=== PATIENT | male | born 1945 | race Caucasian/White ===

== ENCOUNTER → 2024-09-26 | Outpatient (CLI) | payer MEDICARE, OTHER ==
--- NOTE | 2024-09-26 10:55 | MR ---
EXAMINATION TYPE: MR lumbar spine wo con DATE OF EXAM: 09/26/2024 9:00 AM COMPARISON: Plain film. CLINICAL INDICATION: Male, 78 years old with history of M47.26 M47.816 M54.40; PHH, Chronic lower aleida k pain, RLE radiculopathy. TECHNIQUE: Multi planar, multi sequence imaging was performed utilizing: T1-weighted, T2-weighted, a nd turbo inversion recovery imaging of the lumbar spine. IV Contrast: mL (None, if empty) FINDINGS: Alignment: The lumbar vertebral bodies have preserved heights with grade 1 anterolisthesis of L4 on L 5. Cord: The conus medullaris and the distal spinal cord appear unremarkable with regards to their signa l intensity and morphology. Bones/Discs: Moderate degeneration changes throughout the spine with osteophyte formation and facet j oint arthropathy. Multilevel disc desiccation is present. No abnormal inversion recovery signal to dennison ggest bony edema. T12-L1: No evidence of significant spinal canal stenosis or neural foraminal stenosis. L1-L2: No evidence of significant spinal canal stenosis or neural foraminal stenosis. L2-L3: Disc bulge and facet joint arthropathy result in mild spinal canal and moderate bilateral neur al foraminal stenosis. L3-L4: Disc bulge and facet joint arthropathy result in severe spinal canal and severe bilateral neur al foraminal stenosis. L4-L5: Disc uncovering from grade 1 anterolisthesis and facet joint arthropathy with severe spinal ca nal stenosis and severe bilateral neural foraminal stenosis. L5-S1: The disc has a rounded posterior morphology without significant spinal canal stenosis. Facet j oint arthropathy with severe left and [id number] right neural foraminal stenosis. No significant spinal canal or neural foraminal stenosis in the remainder of the visualized levels. Other findings: Left common iliac lymph node measuring up to 9 mm in short axis. Right renal cortica l cyst partially visualized measuring at least 7.1 cm. No follow-up recommended. IMPRESSION: 1. Grade 1 anterolisthesis of L4 and L5 with severe bilateral neural foraminal stenosis. 2. L4-L5 moderate additionally there is severe spinal canal stenosis. 3. L5-S1 moderate and severe left neural foraminal stenosis. 4. L3-L4 severe spinal canal stenosis with severe bilateral neural foraminal stenosis. 5. No definitive evidence of disc herniation. 6. 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 [facility], , 09/26/2024 10:52 AM
== END | disposition home or self-care (01) ==
LOC: RADMRIMAIN 08:05
PROVIDERS: ATTEND Orthopaedic Surgery
DX: M47.26 Other spondylosis with radiculopathy, lumbar region (principal); M43.16 Spondylolisthesis, lumbar region; M48.061 Spinal stenosis, lumbar region without neurogenic claudication
CPT/HCPCS: 72148